=== PATIENT | female | born 1975 | race Caucasian/White ===

== ENCOUNTER → 2016-12-24 | Outpatient (CLI) | payer OTHER ==
--- NOTE | 2016-12-24 14:55 | Diagnostic Imaging Report ---
INDICATION: Pelvic pain. FINDINGS: The uterus measures 7.4 x 4.3 x 3.4 cm. The myometrium shows a heterogeneous appearance. Endometrium is very ill defined. Neither ovary is demonstrated. No free fluid is demonstrated. No adnexal masses demonstrated. IMPRESSION: Heterogeneous appearing myometrium with ill-defined endometrium. This may represent adenomyosis. The endometrium may be due to control, however, endometrial neoplasm could not be excluded from this study. Dictated by: Dictated on workstation # [id number]
--- NOTE | 2016-12-28 13:41 | Diagnostic Imaging Report ---
INDICATION: Screening. The current study was also evaluated with a Computer Aided Detection (CAD) system. Comparison made with prior examination 07/08/2015; 11/12/2013. FINDINGS: There is moderate amount of residual fibroglandular tissue bilaterally. There is no dominant mass, spiculated lesion, or suspicious calcification identified. The skin, nipples, and axilla are unremarkable. IMPRESSION: Category 1 negative. ACR BI-RADS Category 1: Negative. Result letter will be mailed to the patient. Note: At least 10% of breast cancer is not imaged by mammography. Dictated by: Dictated on workstation # [id number]
== END ==
LOC: RAD 12:06
PROVIDERS: ATTEND Nurse Practitioner Family
DX: Z12.31 Encounter for screening mammogram for malignant neoplasm of breast (principal); N85.9 Noninflammatory disorder of uterus, unspecified
CPT/HCPCS: 76830; 76856; 77067

== ENCOUNTER → 2018-03-31 | Outpatient (CLI) | payer OTHER ==
--- NOTE | 2018-03-31 19:46 | Diagnostic Imaging Report ---
INDICATION: Routine screening. COMPARISON: Comparison is made with prior mammograms from 12/24/2016 and 07/08/2015. TECHNIQUE: 2D and 3D bilateral screening mammography was performed with computer-aided detection (CAD) system. FINDINGS: Both breasts are heterogeneously dense, limiting the sensitivity of mammography. A new region of microcalcifications has developed in the lower and inner aspect of the left breast at mid depth. Additional views are recommended. No mass is identified. Axillae are unremarkable. IMPRESSION: New left breast calcifications. Additional views are recommended for further evaluation. ACR BI-RADS Category 0: Incomplete. (Needs additional imaging evaluation). Result letter will be mailed to the patient. Note: At least 10% of breast cancer is not imaged by mammography. Dictated on workstation # [id number]
== END ==
LOC: RAD 10:27
PROVIDERS: ATTEND Nurse Practitioner Family
DX: Z12.31 Encounter for screening mammogram for malignant neoplasm of breast (principal); N63.10 Unspecified lump in the right breast, unspecified quadrant
CPT/HCPCS: 77067

== ENCOUNTER → 2018-04-26 | Outpatient (CLI) | payer OTHER ==
--- NOTE | 2018-04-26 18:21 | Diagnostic Imaging Report ---
INDICATION: Abnormal screening mammogram. EXAMINATION: Unilateral left breast digital diagnostic mammogram with CAD. The current study was also evaluated with a Computer Aided Detection (CAD) system. FINDINGS: The screening mammogram performed on 03/31/2018 noted a new region of microcalcifications in the lower inner aspect of the left breast at mid depth. Compression/magnification views of these microcalcifications show that they are numerous and pleomorphic. This appearance is worrisome for malignancy. A stereotactic biopsy would be recommended. IMPRESSION: 1. The newly developed microcalcifications in the left breast are suspicious for malignancy. A stereotactic biopsy would be recommended. 2. These results were called to Rocio Tijerina APRN. ACR BI-RADS Category 4: Suspicious abnormality. Result letter will be mailed to the patient. Note: At least 10% of breast cancer is not imaged by mammography. CRITICAL FINDING Dictated by: Dictated on workstation # [id number]
== END ==
LOC: RAD 13:28
PROVIDERS: ATTEND Nurse Practitioner Family
DX: R92.0 Mammographic microcalcification found on diagnostic imaging of breast (principal)